=== PATIENT | female | born 1970 | race Caucasian/White ===

== ENCOUNTER 2019-08-19 16:51 | Inpatient (IN) ==
[2019-08-19 18:18] LABS: URINE SOURCE CATH
[2019-08-19 18:23] LABS: BILIRUBIN URINE NEGATIVE (NEGATIVE); BLOOD URINE NEGATIVE (NEGATIVE); COLOR YELLOW; GLUCOSE URINE NEGATIVE (NEGATIVE); KETONE URINE NEGATIVE (NEGATIVE); LEUKOCYTES URINE LARGE (NEGATIVE); NITRITE URINE POSITIVE (NEGATIVE); PH URINE 6.5; PROTEIN URINE TRACE mg/dL (NEGATIVE); SP GRAVITY URINE 1.017; TURBIDITY URINE HAZY (CLEAR); UROBILINOGEN URINE NORMAL (NORMAL)
[2019-08-19 18:25] LABS: UR EPITHELIAL CELLS <10 /HPF (<10); URINE BACTERIA 4+ /HPF; URINE RBC <10 /HPF (<10); URINE WBC TNTC /HPF (<10)
--- NOTE | 2019-08-19 19:09 | PROVIDER DOCUMENTATION ---
This chart was entered by Sonali Meléndez Scribe, acting as scribe for Clarence Fine DO. HPI-General Adult - General Source: EMS Unable to obtain history due to:: altered - History of Present Illness -Gen Adult Nature of Presenting Problems: pt is a 49 yr old female presenting via EMS after brother found her home, in bed, pt had been incontinent of bowel and bladder and was lying in her excrement. pt moaning, states "i hurt" but will not say more, will not answer any questions. pt complains of pain everywhere she is touched. unknown last normal Onset/Duration: reports: unsure Timing: reports: still present <Clarence Fine - Last Filed: 08/19/19 19:07> <Tai Dukes - Last Filed: 08/19/19 22:29> - General Chief Complaint: Altered Mental Status Stated Complaint: psych Time Seen by Provider: 08/19/19 17:45 Allergies/Adverse Reactions: Patient Allergies Allergy/AdvReac Type Severity Reaction Status Date / Time No Known Allergies Allergy Verified 01/27/19 10:56 Home Medications: Home Medication List Medication Instructions Recorded Confirmed Last Taken Type Duloxetine [Cymbalta] 60 mg PO HS 11/11/16 09/27/17 01/11/17 19:00 History Doxycycline 100 mg PO BID #14 tab 09/27/17 Unknown Rx Fluconazole [Diflucan] 150 mg PO DAILY #5 tab 09/27/17 Unknown Rx Sulfamethoxazole/Trimethoprim 1 ea PO BID #10 tab 09/27/17 Unknown Rx [Bactrim Ds Tablet] Cyclobenzaprine [Flexeril] 10 mg PO TID #15 tab 10/01/17 Unknown Rx Methylprednisolone [Medrol Dosepak] 4 mg PO DIRECTED #1 pkg 10/01/17 Unknown Rx Cyclobenzaprine [Flexeril] 10 mg PO BID PRN PRN #20 tab 09/28/18 Unknown Rx Review of Systems - Adult - REVIEW OF SYSTEMS - ADULT ROS:: unobtainable per condition Constitutional: reports: no symptoms reported Eyes: reports: no symptoms reported Ears, Nose, Mouth & Throat: reports: no symptoms reported Cardiovascular: reports: no symptoms reported Respiratory: reports: no symptoms reported Gastrointestinal: reports: no symptoms reported Genitourinary: reports: no symptoms reported Musculoskeletal: reports: no symptoms reported Integumentary: reports: no symptoms reported Neurological: reports: no symptoms reported Psychiatric: reports: no symptoms reported Endocrine: reports: no symptoms reported Hematologic/Lymphatic: reports: no symptoms reported Allergic/Immunologic: reports: no symptoms reported All Other Systems: Reviewed and Negative <Clarence Fine - Last Filed: 08/19/19 19:07> Past History - Adult - PAST MEDICAL HISTORY-ADULT Review of Records: reports: Old Records Reviewed, Nursing Assessment Review, Medications Reviewed, Social history reviewed & non-contributory. Major Childhood Illnesses: reports: denies history Cardiovascular: reports: denies history Respiratory: reports: denies history Gastrointestinal: reports: GERD Obstetrical/Gynecological: reports: denies history Genitourinary: reports: denies history Musculoskeletal: reports: denies history Neurological: reports: denies history Psychiatric: reports: depression Endocrine/Immune: reports: denies history Other Conditions: reports: other (pna) - PRIOR SURGERIES/PROCEDURES Surgical/Procedure History: reports: appendectomy, hysterectomy, breast (reduction), back/neck, other (breast re) - PRIOR HOSPITALIZATIONS Prior Hospitalizations: reports: none - IMMUNIZATION STATUS Childhood Immunizations: See Nurse Assessment Flu Vaccine: See Nurse Assessment - FAMILY HISTORY Family History: reviewed, not pertinent - SOCIAL HISTORY Smoking: cigarettes Living Situation: alone <Clarence Fine - Last Filed: 08/19/19 19:07> Physical Exam-General - PHYSICAL EXAM-ADULT Initial Vital Signs Reviewed: Yes - CONSTITUTIONAL General Appearance: alert, other (moaning, not answering questions) - EYES Eyes: PERRL/EOMI (5mm bilaterally) - HEAD, EARS, NOSE, MOUTH & THROAT HENMT: normocephalic/atraumatic, moist mucous membranes, normal ENT inspection - NECK Neck: full range of motion, supple, normal inspection - RESPIRATORY Respiratory: lungs clear, normal breath sounds - CARDIOVASCULAR Cardiovascular: normal peripheral pulses, regular rate, rhythm - GASTROINTESTINAL (ABDOMEN) Abdominal Exam: normal bowel sounds, soft, tenderness (gen tenderness/pain response with any touch) - LYMPHATIC Lymphatic: no adenopathy - MUSCULOSKELETAL Extremity: normal range of motion, tenderness (gen tenderness/pain response with any touch) - SKIN Integumentary: normal color, normal turgor, warm/dry - PSYCHIATRIC Psych/Mental Status: other (moaning, will not answer questions) <Clarence Fine - Last Filed: 08/19/19 19:07> Progress - PLAN OF CARE/RESULTS Progress/Plan/Lab Results: Vital Signs - 8 hr 08/19/19 17:37 08/19/19 17:45 08/19/19 17:53 Temperature 98.0 F Pulse Rate 64 66 Respiratory Rate 16 18 Blood Pressure 140/72 140/72 O2 Sat by Pulse Oximetry 98 95 97 08/19/19 18:00 Temperature Pulse Rate Respiratory Rate Blood Pressure O2 Sat by Pulse Oximetry 96 Laboratory Results - last 24 hr 08/19/19 08/19/19 17:45 18:02 POC Glucose 88 Urine Source CATH Urine Color YELLOW Urine Turbidity HAZY Urine pH 6.5 Ur Specific [place] 1.017 Urine Protein TRACE A Ur Glucose (Stick) NEGATIVE Ur Ketones (Stick) NEGATIVE Urine Blood NEGATIVE Urine Nitrite POSITIVE A Urine Bilirubin NEGATIVE Urobilinogen Dipstick NORMAL Urine Leukocytes LARGE A Urine WBC (Auto) TNTC A Urine RBC (Auto) <10 U Epithel Cells (Auto) <10 Urine Bacteria (Auto) 4+ Orders Category Date Time Status CT HEAD W/O CONTRAST [CT] Stat Exams 08/19/19 18:34 Ordered ALCOHOL BLOOD Stat Lab 08/19/19 18:08 Uncollected CBC WITH ELECTRONIC DIFF [HEME] Stat Lab 08/19/19 18:07 Uncollected CBC WITH ELECTRONIC DIFF [HEME] Stat Lab 08/19/19 18:35 Uncollected CK PROFILE [SP CHEM] Stat Lab 08/19/19 18:07 Ordered COMPREHENSIVE METABOLIC PANEL [CHEM] Stat Lab 08/19/19 18:07 Ordered COMPREHENSIVE METABOLIC PANEL [CHEM] Stat Lab 08/19/19 18:35 Ordered UA NIMS W/REFLEX CULT [URINALYSIS] Stat Lab 08/19/19 17:45 Completed URINE DRUG SCREEN Stat Lab 08/19/19 18:37 Uncollected - EKG 1 Time of EKG reading by physician:: 18:09 EKG Read and Signed by:: Clarence Fine EKG Interpretation (*Must complete 3 of following elements*): Abnormal (non specific ST and T wave abnormality) Rate: 66 Rhythm: NSR with SA [place]: normal QRS: normal - CHANGE OF SHIFT REPORT (ED Provider) 1 Report Given and Care Transferred to:: Dr Dukes Time of Transfer: 19:08 Items Pending: Labs, CT/MRI Results <Clarence Fine - Last Filed: 08/19/19 19:07> - PLAN OF CARE/RESULTS Progress/Plan/Lab Results: Vital Signs - 8 hr 08/19/19 17:37 08/19/19 17:45 08/19/19 17:53 Temperature 98.0 F Pulse Rate 64 66 Respiratory Rate 16 18 Blood Pressure 140/72 140/72 O2 Sat by Pulse Oximetry 98 95 97 08/19/19 18:00 08/19/19 19:22 08/19/19 19:32 Temperature Pulse Rate Respiratory Rate Blood Pressure 161/101 176/116 O2 Sat by Pulse Oximetry 96 94 L 93 L Laboratory Results - last 24 hr 08/19/19 08/19/19 08/19/19 17:45 17:45 18:02 WBC RBC Hgb Hct MCV MCH MCHC RDW Std Deviation Plt Count MPV Immature Gran % (Auto) Neut % (Auto) Lymph % (Auto) Coleman % (Auto) Eos % (Auto) Baso % (Auto) Immature Gran # (Auto) Neut # (Auto) Lymph # (Auto) Coleman # (Auto) Eos # (Auto) Baso # (Auto) Sodium Potassium Chloride Carbon Dioxide Anion Gap BUN Creatinine Estimated GFR/1.73 m2 BUN/Creatinine Ratio Glucose POC Glucose 88 Calculated Osmolality Calcium Total Bilirubin AST ALT Alkaline Phosphatase Creatine Kinase Troponin T High Sens Total Protein Albumin Globulin Albumin/Globulin Ratio Urine Source CATH Urine Color YELLOW Urine Turbidity HAZY Urine pH 6.5 Ur Specific [place] 1.017 Urine Protein TRACE A Ur Glucose (Stick) NEGATIVE Ur Ketones (Stick) NEGATIVE Urine Blood NEGATIVE Urine Nitrite POSITIVE A Urine Bilirubin NEGATIVE Urobilinogen Dipstick NORMAL Urine Leukocytes LARGE A Urine WBC (Auto) TNTC A Urine RBC (Auto) <10 U Epithel Cells (Auto) <10 Urine Bacteria (Auto) 4+ Urine Opiates Screen NONE DETECTED Ur Oxycodone Screen NONE DETECTED Ur Methadone, Qual NONE DETECTED Ur Barbiturates Screen NONE DETECTED Ur Phencyclidine Scrn NONE DETECTED Ur Amphetamines Screen NONE DETECTED U Benzodiazepines Scrn NONE DETECTED Urine Cocaine Screen PRESUMPTIVE POSITIVE A U Cannabinoids Screen NONE DETECTED Plasma/Serum Ethyl Alc 08/19/19 08/19/19 08/19/19 19:00 19:00 19:00 WBC 9.64 RBC 4.69 Hgb 13.8 Hct 41.6 MCV 88.7 MCH 29.4 MCHC 33.2 RDW Std Deviation 14.5 Plt Count 224 MPV 11.3 H Immature Gran % (Auto) 0.2 Neut % (Auto) 64.3 Lymph % (Auto) 30.1 Coleman % (Auto) 4.0 Eos % (Auto) 0.9 Baso % (Auto) 0.5 Immature Gran # (Auto) 0.02 Neut # (Auto) 6.19 Lymph # (Auto) 2.90 Coleman # (Auto) 0.39 Eos # (Auto) 0.09 Baso # (Auto) 0.05 Sodium 137 Potassium 4.1 Chloride 104 Carbon Dioxide 20 L Anion Gap 13 BUN 16 Creatinine 0.7 Estimated GFR/1.73 m2 > 60 BUN/Creatinine Ratio 23 Glucose 107 H POC Glucose Calculated Osmolality 275 Calcium 9.2 Total Bilirubin 0.27 AST 13 ALT 6 L Alkaline Phosphatase 111 H Creatine Kinase 45 Troponin T High Sens Total Protein 8.3 Albumin 3.8 Globulin 4.5 Albumin/Globulin Ratio 0.8 Urine Source Urine Color Urine Turbidity Urine pH Ur Specific [place] Urine Protein Ur Glucose (Stick) Ur Ketones (Stick) Urine Blood Urine Nitrite Urine Bilirubin Urobilinogen Dipstick Urine Leukocytes Urine WBC (Auto) Urine RBC (Auto) U Epithel Cells (Auto) Urine Bacteria (Auto) Urine Opiates Screen Ur Oxycodone Screen Ur Methadone, Qual Ur Barbiturates Screen Ur Phencyclidine Scrn Ur Amphetamines Screen U Benzodiazepines Scrn Urine Cocaine Screen U Cannabinoids Screen Plasma/Serum Ethyl Alc 08/19/19 19:00 WBC RBC Hgb Hct MCV MCH MCHC RDW Std Deviation Plt Count MPV Immature Gran % (Auto) Neut % (Auto) Lymph % (Auto) Coleman % (Auto) Eos % (Auto) Baso % (Auto) Immature Gran # (Auto) Neut # (Auto) Lymph # (Auto) Coleman # (Auto) Eos # (Auto) Baso # (Auto) Sodium Potassium Chloride Carbon Dioxide Anion Gap BUN Creatinine Estimated GFR/1.73 m2 BUN/Creatinine Ratio Glucose POC Glucose Calculated Osmolality Calcium Total Bilirubin AST ALT Alkaline Phosphatase Creatine Kinase Troponin T High Sens < 6 Total Protein Albumin Globulin Albumin/Globulin Ratio Urine Source Urine Color Urine Turbidity Urine pH Ur Specific [place] Urine Protein Ur Glucose (Stick) Ur Ketones (Stick) Urine Blood Urine Nitrite Urine Bilirubin Urobilinogen Dipstick Urine Leukocytes Urine WBC (Auto) Urine RBC (Auto) U Epithel Cells (Auto) Urine Bacteria (Auto) Urine Opiates Screen Ur Oxycodone Screen Ur Methadone, Qual Ur Barbiturates Screen Ur Phencyclidine Scrn Ur Amphetamines Screen U Benzodiazepines Scrn Urine Cocaine Screen U Cannabinoids Screen Plasma/Serum Ethyl Alc Orders Category Date Time Status CT HEAD W/O CONTRAST [CT] Stat Exams 08/19/19 18:34 Completed cxr [CHEST-1 VIEW] [RAD] Stat Exams 08/19/19 20:57 Completed ALCOHOL BLOOD Stat Lab 08/19/19 19:00 Completed CBC WITH ELECTRONIC DIFF [HEME] Stat Lab 08/19/19 19:00 Completed CK PROFILE [SP CHEM] Stat Lab 08/19/19 19:00 Completed COMPREHENSIVE METABOLIC PANEL [CHEM] Stat Lab 08/19/19 19:00 Completed TROPONIN T HIGH SENSITIVITY Stat Lab 08/19/19 19:00 Completed UA NIMS W/REFLEX CULT [URINALYSIS] Stat Lab 08/19/19 17:45 Completed URINE CULTURE [RM] Routine Lab 08/19/19 17:45 Received URINE DRUG SCREEN Stat Lab 08/19/19 17:45 Completed CefTRIAXONE [Rocephin] 1 gm Med 08/19/19 20:38 Discontinued 0.9% Sodium Chloride Inj [Ns] 50 ml IV NOW Lorazepam [Ativan] Med 08/19/19 19:24 Discontinued 1 mg IV NOW ONE Water, Sterile Inj [Sterile Water Inj.] Med 08/19/19 20:02 Discontinued 1.2 ml INJ NOW ONE Ziprasidone [Geodon] Med 08/19/19 20:02 Discontinued 20 mg IM NOW ONE EKG [EKG] Stat Ther 08/19/19 20:56 Ordered Result Diagrams: 08/19/19 19:00 08/19/19 19:00 - CONSULTS/PCP/HOSPITALIST Notification #1 *Consult/PCP/Hospitalist*: Dr Real Time Discussed: 22:28 Consult Disposition: Will see in ED, Admit <Tai Dukes - Last Filed: 08/19/19 22:29> Departure <Clarence Fine - Last Filed: 08/19/19 19:07> - Departure Date of Disposition Decision: 08/19/19 Time of Disposition Decision: 22:28 Certified Medical Emergency: Emergent - Critical Care Note This patient required my direct & personal management of CC.: No <Tai Dukes - Last Filed: 08/19/19 22:29> - Departure DIAGNOSIS: Altered mental status, Substance abuse, UTI (urinary tract infection) Disposition: ADMITTED INPATIENT 09 Condition: Fair Referrals and Follow-Ups: Franco Tolentino MD [Primary Care Provider] - Attestation - Physician/ BIN Attestation Patient care was provided by Advanced Practice Provider:: No The physician spent face to face time with patient:: Yes Advanced Practice Provider documentation review:: Supervising physician onsite and consulted in the evaluation and care of this patient. The physician did have a face to face encounter with the patient. <Tai Dukes - Last Filed: 08/19/19 22:29> This chart was documented by the indicated scribe, (Sonali Meléndez, Melvina) and accurately reflects the services I performed and decisions made by , Clarence Fine DO, as attested by the provider's signature.
[2019-08-19 19:11] LABS: BASO# 0.05 X1000 (0.0-0.2); BASO% 0.5 % (0.0-0.8); EOS# 0.09 X1000 (0.0-0.7); EOS% 0.9 % (0.0-10.0); HEMATOCRIT 41.6 % (37.0-47.0); HEMOGLOBIN 13.8 g/dL (12.0-16.0); IMM GRAN# 0.02 X1000 (0.0-0.04); IMM GRAN% 0.2 % (0.0-0.5); LYMPH% 30.1 % (20.5-51.1); MCH 29.4 PG (27-31); MCHC 33.2 g/dL (33-37); MCV 88.7 FL (81-99); MONO# 0.39 X1000 (0.11-0.59); MPV 11.3 FL (7.4-10.4); NEUT# 6.19 X1000 (1.4-6.5); NEUT% 64.3 % (42.2-75.2); PLT 224 X1000 (130-400); RBC 4.69 XMIL (4.2-5.4); RDW 14.5 % (11.5-14.5); WBC 9.64 X1000 (4.8-10.8)
[2019-08-19] MEDS ORDERED: ATIVAN IV ONE (19:24)
[2019-08-19 19:31] LABS: UR AMPHETAMINES QUAL NONE DETECTED (NONE DETECT); UR BARBITUATES QUAL NONE DETECTED (NONE DETECT); UR BENZODIAZEPIN QUAL NONE DETECTED (NONE DETECT); UR CANNABINOIDS QUAL NONE DETECTED (NONE DETECT); UR COCAINE QUAL PRESUMPTIVE POSITIVE (NONE DETECT); UR METHADONE QUAL NONE DETECTED (NONE DETECT); UR OPIATES QUAL NONE DETECTED (NONE DETECT); UR OXYCODONE QUAL NONE DETECTED (NONE DETECT); UR PCP QUAL NONE DETECTED (NONE DETECT)
[2019-08-19 19:41] LABS: AGAP 13; ALB/GLOB RATIO 0.8; ALBUMIN 3.8 g/dL (3.5-5.0); ALKALINE PHOSPHATASE 111 U/L (32-104); BUN 16 mg/dL (8-22); CALCIUM 9.2 mg/dL (8.8-10.2); CHLORIDE 104 mmol/L (98-107); CK PROFILE 45 U/L (24-173); COSMO 275; CREATININE 0.7 mg/dL (0.5-0.9); ESTIMATED GFR > 60; GLUCOSE 107 mg/dL (70-104); GOT 13 U/L (10-30); GPT 6 U/L (10-36); POTASSIUM 4.1 mmol/L (3.5-5.1); SODIUM 137 mmol/L (136-145); TCO2 20 mmol/L (25-35); TOTAL BILIRUBIN 0.27 mg/dL (0.20-1.00); TOTAL PROTEIN 8.3 g/dL (6.3-8.3)
[2019-08-19] MEDS ORDERED: GEODON IM ONE (20:02)
[2019-08-19] MEDS ORDERED: STERILE WATER INJ. INJ ONE (20:02)
[2019-08-19] MEDS ORDERED: ROCEPHIN 1 GM in NS 50 ML IV ONE (20:38)
--- NOTE | 2019-08-19 21:01 | Diag Imaging Result Doc PS360 ---
EXAM: CT HEAD W/O CONTRAST 08/19/2019 HISTORY: altered mental status TECHNIQUE: This exam was performed using automated exposure control, adjustment of mA or kV according to patient size, and/or use of iterative reconstruction technique. COMMENT: There are numerous lacunar lucencies in the anterior basal ganglia on the right and to a lesser extent in the left basal ganglia and external capsule. There is no evidence of bleed or abnormal extra-axial fluid collection. Compared to 01/27/2019 there has been no significant change in the appearance the brain. There is an air-fluid level in the right sphenoid sinus. The calvarium is intact. There is persistence of the metopic suture. IMPRESSION: Chronic microvascular ischemic changes. No evidence of acute intracranial disease. Electronically signed by Eleazar Morrissey 08/19/2019 8:58 PM
--- NOTE | 2019-08-19 21:22 | Diag Imaging Result Doc PS360 ---
EXAM: CHEST-1 VIEW 08/19/2019 HISTORY: ams TECHNIQUE: AP portable at 2113 COMMENT: There is ill-defined opacity in both lung bases which was not clearly present on 01/10/2017. The heart size is not enlarged. The pulmonary vascularity is somewhat prominent. IMPRESSION: Mild pulmonary edema. Electronically signed by Eleazar Morrissey 08/19/2019 9:20 PM
[2019-08-19] MEDS ORDERED: ZOFRAN IV PRN (23:18)
--- NOTE | 2019-08-19 23:47 | EKG Report ---
Test Performed on : 08/19/2019 6:09:59 PM Test Reason : ams Blood Pressure : / mmHG Vent. Rate : 066 BPM Atrial Rate : 066 BPM P-R Int : 166 ms QRS Dur : 070 ms QT Int : 436 ms P-R-T Axes : 070 058 063 degrees QTc Int : 457 ms Normal sinus rhythm. with sinus arrhythmia. Nonspecific ST and T wave abnormality Abnormal ECG When compared with ECG of 27-JAN-2019 11:04, Inverted T waves have replaced nonspecific T wave abnormality in Anterior leads Nonspecific T wave abnormality no longer evident in Lateral leads Unconfirmed Result
--- NOTE | 2019-08-20 00:56 | HISTORY AND PHYSICAL ---
PRIMARY CARE PROVIDER: Unknown. CHIEF COMPLAINT: Per ED records, altered. HISTORY OF PRESENT ILLNESS: Ms Mcmahon is a 49-year-old female who was brought in by EMS after her brother found her at home in bed who had been incontinent of her bowel and bladder and was lying in her excrement moaning and saying "I hurt," but would not say any more and would not answer any other questions. It is unknown when she was last seen normal. Nursing staff reported that around 21:50 a female called who stated she was the patient's friend's stating that her had found her earlier and called 911 and that they had found her antidepressant bottle with all her medication gone from it that she had just gotten filled 1 week ago. They were not able to identify what the medication was. When patient first arrived she was screaming. I believe she was given some Geodon and some Ativan to get a head CT that does not show anything acute. Laboratory data was essentially unremarkable except for a urinary tract infection and positive for cocaine on her drug screen. Her chest x-ray does show some mild pulmonary edema. The patient does open her eyes to her name. However, she does not answer any questions or follow commands. She has had both arms up by her hand with her fists tightly closed. I was able to get her to move her arms down and she released her tight prenatal teacher on her fists. However, she did not squeeze my hands or do anything that I asked. PAST MEDICAL HISTORY: Per looking through EMR, major depressive disorder, alcohol use, she had been in remission in 2016 but she had a relapse, unknown if she has been alcohol-free since. She has had a prior overdose attempt, benzodiazepine use disorder, GERD. SURGICAL HISTORY: Hysterectomy and breast reduction, appendectomy, and a laparoscopic with S O with Dr. Lorenzo. REVIEW OF SYSTEMS: Hard to obtain secondary to the patient's condition except for those mentioned in HPI. HOME MEDICATIONS: Unknown. ALLERGIES: No known allergies. SOCIAL HISTORY: Unknown. FAMILY HISTORY: Unknown. PHYSICAL EXAMINATION: VITAL SIGNS: Temperature was 98 degrees, heart rate 66, respirations 18, blood pressure 176/116, O2 of 93% on room air. GENERAL: Ms. Mcmahon is a 49-year-old female who is lying on the stretcher. She has her arms up folded by her head with tight fists, sleeping. However, she did awaken easily to her name. She is lying there in no acute distress. HEENT: Atraumatic, normocephalic. PERRL. NECK: Supple. Trachea midline. CARDIOVASCULAR: S1, S2 appreciated. No murmurs, gallops, rubs noted. RESPIRATORY: Lung sounds clear bilaterally. GASTROINTESTINAL: Appeared to be soft, nontender, nondistended. Positive bowel sounds 4 quadrants. EXTREMITIES: Lower extremities were negative for edema. Bilateral pedal pulses were bounding. NEUROLOGIC: The patient does not really respond to any questioning. She just looks at me. She did not follow any commands. DIAGNOSTIC DATA: Head CT, chronic microvascular ischemic changes. No evidence of acute intracranial disease. Chest x-ray, mild pulmonary edema. LABORATORY DATA: White count 9, hemoglobin and hematocrit 13 and 41, platelet count is 224,000. Sodium 137, potassium 4.1, BUN 16, creatinine 0.7, blood glucose is 107, ALT is 6, alkaline phosphatase 111. Urinalysis, 4+ bacteria, large leukocytes, positive for nitrites. Toxicology screen is positive for cocaine. Alcohol level, none. ASSESSMENT AND PLAN: 1. Altered mental status.multifactorial. Could be secondary to infectious process with UTI versus overdose or cocaine use. She did have a concerned friend call in about the patient stating that she had took a whole bottle of her antidepressants that were filled last week. However, her toxicology screen is only positive for cocaine. Head CT is currently negative. We will monitor in ICU for close monitoring. Continue with neuro checks. She is currently calm. However, she was having to get Geodon and Ativan for her head CT neck. They kept reporting that she was screaming out she was hurting, but would not tell them where. 2. Hypertension. We will do p.r.n. Apresoline for systolic blood pressures greater than 160. 3. Mild pulmonary edema seen on chest x-ray. Did not see any history of congestive heart failure. Unknown what her home medications are at this time. She does not appear to be fluid volume overloaded. We will go ahead and check a proBNP. 4. Depression. 5. Suicide attempt in the past. I believe in 2016. 6. Alcohol use disorder and benzodiazepine use disorder. We will consult Plastic Surgery Nurse for possible [facility] consult. 7. Further recommendation to follow physician evaluation, laboratory and diagnostic data. Dictated by SEBASTIEN Doss for Douglas Saldivar MD cc: Douglas Saldivar MD [facility]
[2019-08-20 01:04] LABS: ACETAMINOPHEN < 1.2 ug/mL (10-30); SALICYLATES < 3.00 mg/dL (3-10)
[2019-08-20] MEDS: NS 1,000 ML IV SCH ×2 (02:15→20:46)
[2019-08-20] MEDS: APRESOLINE IV PRN ×2 (04:44→16:53)
--- NOTE | 2019-08-20 06:34 | Diag Imaging Result Doc PS360 ---
CHEST-PORTABLE - 08/20/2019 INDICATION: follow up Poss OD, cough COMPARISON: 08/19/2019 FINDINGS: The lungs are normally expanded and clear. Heart size and mediastinal contours are normal. No pneumothorax or pleural effusion. IMPRESSION: Negative exam. Electronically signed by Mic Honeycutt 08/20/2019 6:32 AM
[2019-08-20] MEDS ORDERED: PYRIDIUM PO ONE (06:45)
[2019-08-20 07:48] LABS: BASO# 0.02 X1000 (0.0-0.2); BASO% 0.2 % (0.0-0.8); EOS# 0.13 X1000 (0.0-0.7); EOS% 1.5 % (0.0-10.0); HEMATOCRIT 40.2 % (37.0-47.0); HEMOGLOBIN 13.1 g/dL (12.0-16.0); IMM GRAN# 0.03 X1000 (0.0-0.04); IMM GRAN% 0.3 % (0.0-0.5); LYMPH# 2.49 X1000 (1.2-3.4); LYMPH% 28.8 % (20.5-51.1); MCH 29.2 PG (27-31); MCHC 32.6 g/dL (33-37); MCV 89.5 FL (81-99); MONO% 5.8 % (1.7-9.3); NEUT# 5.49 X1000 (1.4-6.5); NEUT% 63.4 % (42.2-75.2); PLT 225 X1000 (130-400); RBC 4.49 XMIL (4.2-5.4); RDW 14.7 % (11.5-14.5); WBC 8.66 X1000 (4.8-10.8)
[2019-08-20 08:15] LABS: UR AMPHETAMINES QUAL NONE DETECTED (NONE DETECT); UR BARBITUATES QUAL NONE DETECTED (NONE DETECT); UR BENZODIAZEPIN QUAL NONE DETECTED (NONE DETECT); UR CANNABINOIDS QUAL NONE DETECTED (NONE DETECT); UR COCAINE QUAL PRESUMPTIVE POSITIVE (NONE DETECT); UR METHADONE QUAL NONE DETECTED (NONE DETECT); UR OPIATES QUAL NONE DETECTED (NONE DETECT); UR OXYCODONE QUAL NONE DETECTED (NONE DETECT); UR PCP QUAL NONE DETECTED (NONE DETECT)
[2019-08-20 08:29] LABS: AGAP 14; ALB/GLOB RATIO 0.8; ALBUMIN 3.6 g/dL (3.5-5.0); ALKALINE PHOSPHATASE 104 U/L (32-104); BUN 15 mg/dL (8-22); CALCIUM 8.9 mg/dL (8.8-10.2); CHLORIDE 106 mmol/L (98-107); COSMO 279; CREATININE 0.7 mg/dL (0.5-0.9); GLUCOSE 84 mg/dL (70-104); GOT 16 U/L (10-30); GPT 7 U/L (10-36); POTASSIUM 3.6 mmol/L (3.5-5.1); SODIUM 140 mmol/L (136-145); TCO2 20 mmol/L (25-35); TOTAL BILIRUBIN 0.27 mg/dL (0.20-1.00); TOTAL PROTEIN 8.2 g/dL (6.3-8.3)
[2019-08-20 08:50] LABS: ACETAMINOPHEN < 1.2 ug/mL (10-30); SALICYLATES < 3.00 mg/dL (3-10)
--- NOTE | 2019-08-20 09:12 | PROGRESS NOTE ---
DATE: 08/20/2019 SUBJECTIVE: Patient is resting comfortably in bed. She is not oriented, only to person. She is not answering any of my questions. She is following commands on and off. We are not sure if this patient took all of the bottles of antidepressant medications that were filled last week. Urine toxicology showed cocaine. She has a UTI so this global encephalopathy can be multifactorial. No family members at the bedside. OBJECTIVE: Vital Signs: Temperature 97.4 degrees, pulse 94, respiratory rate 21, and blood pressure 164/119. Oxygen saturation 100% on room air. HEENT: Head normocephalic. No trauma. PERRLA. Neck: Supple. No JVD. No masses. Central trachea. Cardiovascular: RRR. Abdomen: Soft, nontender, and nondistended. Abdomen is soft, but she is having tenderness mostly at the level of the lower abdomen but is diffused. She is not answering my questions when I ask her where is the pain at. Extremities: No edema. No clubbing. No cyanosis. Neurological: This patient is basically not responding to any of my questions except her name, and this has been on and off. LABORATORY AND DIAGNOSTIC: CT of the head has been negative for acute intracranial process. I will get a CT scan of the abdomen to rule out any infectious process. Her urine showed white blood cell count, bacteria and nitrates. She has been started on ceftriaxone, but I will switch it to Zosyn for now. Urine culture has been requested. I will request also a blood culture. ASSESSMENT AND PLAN: 1. Global encephalopathy, multifactorial, probably related to an infectious process, but also we have a positive urine toxicology that showed cocaine. On top of that, probably this patient took a bottle of antidepressants that were filled last week. We will continue monitoring this patient in the ICU. She is complaining of abdominal pain, and I will get a CT scan of the abdomen. 2. Abdominal pain, pending CT scan of the abdomen to rule out any acute process. 3. Hypertension. Continue with as needed medications. 4. Depression aware, but no family members at the bedside. 5. Previous suicide attempt. I Am not sure about this, and she is not answering any of my questions except that she is oriented to name. I will continue to monitor. 6. Alcohol use disorder and benzodiazepine use disorder. Once everything is resolved, hopefully, we will think about transferring this patient to [facility] if she has any kind of problems related to a suicide attempt. 7. Urinary tract infection. I have placed this patient on antibiotics Zosyn. I have requested blood culture, and also she already had a urine culture done. Pending results. cc: Bolivar Palacios MD
[2019-08-20] MEDS: ZOSYN 3.375 GM in NS 50 ML IV SCH ×3 (10:08→20:46)
[2019-08-20] MEDS ORDERED: VANCOMYCIN IV PER PHARMACY MISC SCH (10:30)
--- NOTE | 2019-08-20 10:55 | Diag Imaging Result Doc PS360 ---
CT ABD/PELVIS W/IV CONT ONLY - 08/20/2019 INDICATION: Abdominal pain COMPARISON: None FINDINGS: The lung bases are clear and the heart size is normal. The liver, gallbladder, spleen, pancreas, adrenals, and kidneys are normal. There is some vascular disease and mild dilation of the infrarenal abdominal aorta. Maximum diameter is about 2.6 cm. There is moderate to severe rectal stool impaction. Otherwise, no bowel obstruction or inflammation. There is probably been previous appendectomy. Uterus is absent. Urinary bladder is normal. There is vertebroplasty cement in L2. No acute bony lesions. IMPRESSION: 1. Severe rectal stool impaction. 2. Vascular disease of the abdominal aorta. This exam was performed using automated exposure control, adjustment of mA or kV according to patient size, and/or use of iterative reconstruction technique Electronically signed by Mic Honeycutt 08/20/2019 10:53 AM
--- NOTE | 2019-08-20 12:52 | NEUROLOGY CONSULTATION ---
DATE: 08/20/2019 LOCATION: ICU bed 18. HISTORY OF PRESENT ILLNESS: Ms. Mcmahon is 49 years old and she was reportedly found down at home with evidence of bowel and bladder contents near her. By report, she was moaning and saying, "I hurt," but not responding verbally beyond that. I do not have any first-hand history. History is taken from review of the admission note. Workup includes noncontrast CT of the head done almost 20 hours ago, showing multiple small subcortical white matter lucencies bilaterally, a little bit more prominent on the right than the left, mostly basal ganglia region bilaterally. I do not see significant evidence of cortical atrophy. There is no evidence of bleeding. Findings are not significantly changed compared to scan done 7 months ago. Lab shows borderline elevated proBNP, mildly elevated alkaline phosphatase, which corrected, otherwise normal liver enzymes. There is evidence of urine infection. Drug screen was positive only for cocaine. Serum ethanol level was none detected. She has been afebrile. Blood pressures have ranged 90s to 170s since admission, 130s to 170s in the last 12 hours. Heart rate has been 60s to 80s until once recorded 94 this morning. On exam, Ms. Mcmahon is supine, awake, alert, active, moving all limbs spontaneously. She has been reported to speak her name correctly when asked earlier, but she did not reply when I asked her to tell me her name. She nodded her head appropriately affirmatively to a few questions. She followed a few simple commands, including holding up two fingers. She was not attentive to visual field testing. She did blink with visual threat approaching from the left and from the right. Limb tone is symmetric. She was not attentive to commands for examining individual muscles. Plantar response is silent bilaterally. There is slight tremulousness, but nothing prominent, and no classifiable tremor or other definite abnormal movement apparent. She has full spontaneous voluntary conjugate lateral eye movement. Facial motility is symmetric. Tongue is midline. Head and neck are unremarkable. There is no meningismus. IMPRESSION: Global encephalopathy, uncertain etiology. There may be multiple factors. I do not see anything in the chemistry profile likely sufficient to produce encephalopathy. I suspect this is related to substance ingestion, possibly antidepressant medication as was noted to be a concern based on history recorded earlier. There is evidence of basal ganglia lucency bilaterally, most likely due to previous subcortical small cerebral infarctions bilaterally. Prior brain injury from bleeding or from carbon monoxide are not excluded. Brain infarction could be related to her apparent cocaine use, but findings do not indicate a recent infarction. The elevated blood pressure may also be related to cocaine. I do not know her baseline blood pressure or other medical status. I do not have any urgent suggestion. I expect she will slowly improve. Depending on her baseline, she might need some attention to cognitive testing, and certainly counseling regarding substance use. Thank you for asking Neurology to see Ms. Mcmahon. cc: MD MANDIE Chaidez III
[2019-08-20] MEDS ORDERED: VANCOMYCIN 1,800 MG in NS 250 ML IV ONE (15:00)
[2019-08-20] MEDS ORDERED: FLEET ENEMA PR ONE (16:16)
[2019-08-20] MEDS ORDERED: CALMOSEPTINE OINTMENT TOP PRN (16:54)
[2019-08-20] MEDS: TORADOL IV PRN (17:59)
[2019-08-20] MEDS ORDERED: NS 0 ML ONE ×2 (19:19→20:23)
[2019-08-20] MEDS ORDERED: ROCEPHIN 1 GM in NS 50 ML IV SCH (20:00)
[2019-08-20] MEDS ORDERED: DULCOLAX PR SCH (21:00)
[2019-08-21] MEDS: ZOSYN 3.375 GM in NS 50 ML IV SCH ×4 (01:42→20:58)
[2019-08-21] MEDS: TORADOL IV PRN ×2 (02:41→09:29)
[2019-08-21] MEDS: APRESOLINE IV PRN (03:15)
[2019-08-21 05:54] LABS: AGAP 15; ALB/GLOB RATIO 0.9; ALBUMIN 3.8 g/dL (3.5-5.0); ALKALINE PHOSPHATASE 98 U/L (32-104); BUN 16 mg/dL (8-22); CALCIUM 8.8 mg/dL (8.8-10.2); CHLORIDE 106 mmol/L (98-107); COSMO 279; CREATININE 0.8 mg/dL (0.5-0.9); ESTIMATED GFR > 60; GLUCOSE 108 mg/dL (70-104); GOT 16 U/L (10-30); GPT 8 U/L (10-36); POTASSIUM 3.4 mmol/L (3.5-5.1); SODIUM 139 mmol/L (136-145); TCO2 18 mmol/L (25-35); TOTAL BILIRUBIN 0.56 mg/dL (0.20-1.00); TOTAL PROTEIN 7.9 g/dL (6.3-8.3)
[2019-08-21] MEDS ORDERED: KLOR-CON PO ONE (06:25)
--- NOTE | 2019-08-21 07:50 | PROGRESS NOTE ---
DATE: 08/21/2019 SUBJECTIVE: The patient is resting comfortably in bed. She is complaining of lower extremity pain. It looks like a neuropathic type of pain. She has been on pregabalin and duloxetine at home. I will continue with pregabalin/Lyrica and the duloxetine to try to control that pain. I do not think it is a good idea to stop those medications at this moment since those medications should be stopped slowly. She seems to be just a little bit better. She was able to say her name. She was able to say that she is in pain at the level of the lower extremities but she is not oriented to place. She is not able to say her last name. She is not oriented to time. It is hard to say if she is following commands for me. OBJECTIVE: Vital Signs: Temperature 97.4 degrees, pulse 111, respiratory rate 23, blood pressure 154/93, oxygen saturation 93 on room air. HEENT: Head normocephalic. No trauma. PERRLA. Neck: Supple. No JVD. No masses. Central trachea. Cardiovascular: RRR. Abdomen: Soft, nondistended. Some tenderness, mostly at the level of the lower abdomen but it is diffuse. Extremities: No edema, no clubbing, no cyanosis. Neurological Examination: This patient is basically not responding to most of my questions except her name. I do not think she is following commands today. She moves all 4 extremities. She is complaining of lower extremity discomfort but she is not able to say what kind of discomfort/pain it is. Laboratory: Sodium 139, potassium 3.4, chloride 106, bicarbonate 18, BUN 16, creatinine 0.8, glucose 108, calcium 8.8. AST 16, ALT 8, alkaline phosphatase 98, albumin 3.8. ASSESSMENT AND PLAN: 1. Global encephalopathy, multifactorial. This could be related to an infectious process but also we have a urine toxicology that showed cocaine. On top of that, this patient probably took a bottle of antidepressants that were filled last week but I am not quite sure about this information. No family members at the bedside. We will continue to monitor this patient in the intensive care unit. Since she is awake, I will put her on a diet. I asked yesterday for a CT scan of the abdomen. That showed severe rectal stool impaction and also vascular disease of the abdominal aorta. 2. Abdominal pain. CT scan showed fecal impaction. That has resolved. 3. Hypertension. Continue with as-needed medication. 4. Depression. Aware but no family members at the bedside. She has been on duloxetine, which I will continue. 5. Peripheral neuropathy. Continue with duloxetine and pregabalin. 6. Apparent previous suicide attempt. I am not quite sure about this. She is not answering my questions. 7. Alcohol use disorder and benzodiazepine use disorder. We will monitor this patient closely. I am not quite sure if her global encephalopathy is related to an infectious process or medications, or even a suicide attempt. 8. Urinary tract infection. Continue with Zosyn. Urine culture showed gram-positive cocci. Blood cultures negative so far. 9. Hypokalemia. We will replace the potassium. cc: Bolivar Palacios MD
[2019-08-21] MEDS: CYMBALTA PO SCH (09:28)
[2019-08-21] MEDS: LYRICA PO SCH ×3 (09:29→17:30)
[2019-08-21] MEDS ORDERED: BLISTEX MEDICATED BERRY LIP BALM TOP PRN (10:29)
[2019-08-21] MEDS: VANCOMYCIN 1,350 MG in NS 250 ML IV SCH (10:58)
[2019-08-21] MEDS: NS 1,000 ML IV SCH (17:31)
[2019-08-21] MEDS: NICODERM PATCH TD SCH (19:10)
[2019-08-21] MEDS: DULCOLAX PR SCH (20:58)
[2019-08-22] MEDS: ZOSYN 3.375 GM in NS 50 ML IV SCH ×4 (01:59→22:00)
[2019-08-22] MEDS: VANCOMYCIN 1,350 MG in NS 250 ML IV SCH (03:44)
[2019-08-22 06:35] LABS: CALCIUM 8.6 mg/dL (8.8-10.2); CREATININE 1.5 mg/dL (0.5-0.9); PHOSPHORUS 4.9 mg/dL (2.7-4.5); POTASSIUM 3.5 mmol/L (3.5-5.1)
[2019-08-22] MEDS: ZYVOX 600 MG/D5W 600 MG/300 ML IVPB IV SCH ×2 (07:44→18:48)
[2019-08-22] MEDS: LYRICA PO SCH ×3 (08:02→16:30)
[2019-08-22] MEDS: NS 1,000 ML IV SCH ×4 (08:51→23:52)
--- NOTE | 2019-08-22 09:03 | PROGRESS NOTE ---
DATE: 08/22/2019 SUBJECTIVE: The patient is resting comfortably in bed. She is completely awake, alert. She is oriented x3. She does not remember what happened. As per the patient, she was told that she took some medications. As per the patient, she is not suicidal. She used to be a long time ago but not right now. She does cocaine, and she was found by her roommate who called the ambulance, but again, this patient does not know exactly how that happened. On the other hand, her creatinine increased from 0.8 to 1.5. OBJECTIVE: Vital Signs: Temperature 98.1 degrees, pulse 62, respiratory rate 13, blood pressure 127/68, oxygen saturation 94% on room air. HEENT: Head normocephalic, no trauma, PERRLA. Neck: Supple. No JVD. No masses. Central trachea. Chest: Clear to auscultation. No wheezing, no rales. Abdomen: Soft, nontender, nondistended. No hepatosplenomegaly. Extremities: No edema, no clubbing, no cyanosis. Neurological: The patient is awake, alert. She is oriented x3. I do not see any focal neurological deficits. LABORATORY: Sodium 140, potassium 3.5, chloride 109, bicarbonate 19, BUN 18, creatinine 1.5, glucose 92, calcium 8.6, phosphorus 4.9, magnesium 2. ASSESSMENT AND PLAN: 1. Global encephalopathy, multifactorial, probably related to the infectious process. Urine toxicology also showed cocaine, and probably this patient took a bottle of antidepressants before coming to the hospital. No family members are at the bedside. Apparently, this is not the first time that this happen. Apparently, she had some thoughts of killing herself a long time ago, but not recently as per the patient. 2. Abdominal pain, CT scan showed fecal impaction. She has been having bowel movements. 3. Hypertension. This patient's blood pressure has been stable and sometimes increases to the 160s. I will continue with as needed medication. 4. Depression. She has been on duloxetine, which I will stop for now because I have placed this patient on Zyvox due to methicillin-resistant Staphylococcus aureus urinary tract infection. 5. Peripheral neuropathy. Continue with pregabalin. 6. Apparent previous history of suicide attempt, aware. 7. Urinary tract infection due to methicillin-resistant Staphylococcus aureus. I will put this patient on Zyvox, and I will stop the vancomycin due to acute kidney injury. 8. Hypokalemia, resolved. 9. Acute kidney injury. I will stop the vancomycin, and I will increase the rate of the intravenous fluids. SUMMARY: Overall, this patient seems to be stable. She has an acute kidney injury now, which I believe is probably due to medication, especially vancomycin, which I will stop. She has been getting fluids, but I will increase the rate. I think she can be transferred to the floor, and before sending this patient home, once everything is okay, I will contact [facility] to evaluate this patient and talk to her. cc: Bolivar Palacios MD
[2019-08-22] MEDS: NICODERM PATCH TD SCH (18:48)
[2019-08-22] MEDS: DULCOLAX PR SCH (23:12)
[2019-08-23] MEDS: ZOSYN 3.375 GM in NS 50 ML IV SCH ×2 (03:40→09:04)
[2019-08-23] MEDS: ZYVOX 600 MG/D5W 600 MG/300 ML IVPB IV SCH (06:18)
[2019-08-23 08:11] LABS: HEMATOCRIT 35.9 % (37.0-47.0); HEMOGLOBIN 11.7 g/dL (12.0-16.0); MCH 30.1 PG (27-31); MCHC 32.6 g/dL (33-37); MCV 92.3 FL (81-99); MPV 11.8 FL (7.4-10.4); RBC 3.89 XMIL (4.2-5.4); RDW 14.9 % (11.5-14.5); WBC 8.89 X1000 (4.8-10.8)
[2019-08-23 08:30] LABS: CALCIUM 8.1 mg/dL (8.8-10.2); CREATININE 1.9 mg/dL (0.5-0.9); POTASSIUM 3.4 mmol/L (3.5-5.1)
[2019-08-23] MEDS: NICODERM PATCH TD SCH (09:04)
[2019-08-23] MEDS: LYRICA PO SCH ×3 (09:04→17:36)
[2019-08-23] MEDS: NS 1,000 ML IV SCH ×2 (09:05→17:36)
[2019-08-23] MEDS: CYMBALTA PO SCH (12:50)
[2019-08-23] MEDS: DOXYCYCLINE 100 MG in NS 250 ML IV SCH (12:50)
--- NOTE | 2019-08-23 13:06 | PROGRESS NOTE ---
DATE: 08/23/2019 SUBJECTIVE: The patient is resting comfortably in bed. She still does not remember what happened and what brought her here, she is not suicidal, but at the end of this hospitalization, I will get [facility] to talk to her. I do not think this is the first time that this kind of problem happened. No family members at the bedside. Kidney function is a little bit worse compared with yesterday, but as per the patient she has been having good urine output. I will ask for urine studies and renal ultrasound. On the other hand, I will stop the Zyvox and we will put this patient on doxycycline to cover her MRSA urinary tract infection. OBJECTIVE: Vital Signs: Temperature 98.2 degrees, pulse 62, respiratory rate 16, blood pressure 150/74. Oxygen saturation 98 on room air. HEENT: Head, normocephalic, no trauma. PERRLA. Neck: Supple. No JVD. No masses. Central trachea. Chest: Clear to auscultation. No wheezing. No rales. Abdomen: Soft, nontender, nondistended. No hepatosplenomegaly. Extremities: No clubbing, no cyanosis. Neurological: The patient is awake, alert, she is oriented x3. No focal deficits. She seems to be a little bit anxious but no suicidal ideation. LABORATORY: WBC 8.8, hemoglobin 11.7, hematocrit 35.9, platelets 202,000. Sodium 142, potassium 3.4, chloride 111, bicarbonate 23, BUN 17, creatinine 1.9, glucose 105, calcium 8.1. ASSESSMENT AND PLAN: 1. Global encephalopathy, multifactorial, resolved probably related to the infectious process. Urine toxicology also showed cocaine and probably this patient also took a bottle of antidepressants before coming to the hospital. No family members at the bedside. Apparently, this is not the first time that this kind of problem happened. As per the patient, she had some thoughts about killing herself a long time ago but not recently. 2. Abdominal pain, CT scan showed fecal impaction, which resolved. 3. Hypertension. We will continue with as needed medication. 4. Depression. I have placed this patient back on duloxetine. 5. Peripheral neuropathy. Continue with pregabalin. 6. Apparent history of a suicide attempt, aware. 7. Urinary tract infection due to methicillin-resistant Staphylococcus aureus. I have stopped the Zyvox and put her on doxycycline, which is sensitive. 8. Hypokalemia, will monitor. 9. Acute kidney injury, this is getting better. She received some vancomycin and also she had a CT scan with some contrast to rule out any abdominal problem. Her creatinine went up from 1.5 to 1.9, but the BUN actually is about the same from 18 to 17. The patient seems to be stable but she is having an acute kidney injury. Once this patient's kidney injury is better, I will contact [facility] to talk to the patient to see if this patient is safe to go home or if she needs to be hospitalized. cc: Bolivar Palacios MD
--- NOTE | 2019-08-23 14:26 | Diag Imaging Result Doc PS360 ---
EXAM: US RENAL 2 (RETROPER) COMPLETE HISTORY: brittany/arf TECHNIQUE: Renal ultrasound COMPARISON: None. FINDINGS: The right kidney measures 11.7 x 5.2 x 5.7 cm. The left kidney measures 10.7 x 5.4 x 5.2 cm. No stones or hydronephrosis. No renal masses. Borderline mild increased renal echotexture. Normal cortical thickness. The urinary bladder is distended. IMPRESSION: Borderline mild increased renal echotexture, but otherwise normal exam. Electronically signed by Erick Patiño 08/23/2019 2:24 PM
[2019-08-23 16:53] LABS: URINE SOURCE CLEAN CATCH
[2019-08-23 17:05] LABS: BILIRUBIN URINE NEGATIVE (NEGATIVE); BLOOD URINE NEGATIVE (NEGATIVE); COLOR STRAW; GLUCOSE URINE NEGATIVE (NEGATIVE); KETONE URINE NEGATIVE (NEGATIVE); LEUKOCYTES URINE NEGATIVE (NEGATIVE); NITRITE URINE NEGATIVE (NEGATIVE); PH URINE 6.5; PROTEIN URINE NEGATIVE (NEGATIVE); SP GRAVITY URINE 1.007; TURBIDITY URINE CLEAR (CLEAR); UROBILINOGEN URINE NORMAL (NORMAL)
[2019-08-23 17:06] LABS: UR EPITHELIAL CELLS <10 /HPF (<10); URINE BACTERIA NEGATIVE /HPF; URINE RBC <10 /HPF (<10); URINE WBC <10 /HPF (<10)
[2019-08-23 17:21] LABS: UR CREAT RANDOM 21.7 mg/dL (11-20); UR PROT RANDOM 7.3 mg/dL
[2019-08-23] MEDS ORDERED: PRILOSEC PO ONE (22:10)
[2019-08-23] MEDS ORDERED: TUMS PO ONE (22:12)
[2019-08-23] MEDS: MELATONIN PO PRN (22:29)
[2019-08-23] MEDS: DULCOLAX PR SCH (22:30)
[2019-08-24] MEDS: DOXYCYCLINE 100 MG in NS 250 ML IV SCH ×3 (00:16→22:26)
[2019-08-24] MEDS: NS 1,000 ML IV SCH ×2 (03:47→20:01)
[2019-08-24] MEDS: TYLENOL PO PRN ×2 (04:02→14:39)
[2019-08-24] MEDS: PRILOSEC PO SCH (06:49)
[2019-08-24 08:05] LABS: CALCIUM 8.4 mg/dL (8.8-10.2); CREATININE 1.6 mg/dL (0.5-0.9); MAGNESIUM 1.7 mg/dL (1.5-2.7); PHOSPHORUS 3.7 mg/dL (2.7-4.5); POTASSIUM 3.3 mmol/L (3.5-5.1)
[2019-08-24] MEDS: NICODERM PATCH TD SCH (08:32)
[2019-08-24] MEDS: LYRICA PO SCH ×3 (08:33→17:57)
[2019-08-24] MEDS: CYMBALTA PO SCH (08:33)
[2019-08-24] MEDS ORDERED: KLOR-CON PO ONE (10:04)
[2019-08-24] MEDS: D5 1/2 NS 1,000 ML IV SCH ×2 (14:35→22:29)
--- NOTE | 2019-08-24 16:35 | PROGRESS NOTE ---
DATE: 08/24/2019 SUBJECTIVE: This patient is resting comfortably in bed. She still does not remember what happened before coming to the hospital. She is not suicidal, but I will get [facility] to evaluate this patient on the day of discharge, which I believe is going to be tomorrow. Her kidney function is getting better. Her creatinine decreased from 1.9 to 1.6. Initially, her creatinine was completely normal at 0.7. I do believe this acute kidney injury is due to IV contrast and antibiotics. OBJECTIVE: Vital Signs: Temperature 98 degrees, pulse 55, respiratory rate 17, blood pressure 164/80, oxygen saturation 97% on room air. HEENT: Head normocephalic, no trauma. PERRLA. Neck: Supple. No JVD. No masses. Central trachea. Chest: Clear to auscultation. No wheezing. No rales. Abdomen: Soft, nontender, nondistended. No hepatosplenomegaly. Extremities: No edema, no clubbing, no cyanosis. Neurological: The patient is awake, alert, she is oriented x3. No focal neurological deficit, probably mild anxiety. LABORATORY: Sodium 141, potassium 3.3, chloride 113, bicarbonate 18, BUN 13, creatinine 0.6, glucose 91, calcium 8.4, magnesium 1.7. ASSESSMENT AND PLAN: 1. Global encephalopathy, multifactorial, resolved, likely related to the infectious process, also the urine toxicology showed cocaine and apparently she took a bottle of antidepressants before coming to the hospital but I am not sure about it. No family members at the bedside. 2. Abdominal pain, CT scan showed fecal impaction, which resolved. 3. Hypertension continue with medications as needed. 4. History of depression. Aware. I have placed this patient back on Duloxetine. 5. Acute kidney injury, likely due to medications and/or IV contrast. This is getting better, the urine output is improving. We will monitor. Hopefully tomorrow will be much better. 6. Peripheral neuropathy. Continue with pregabalin. 7. History of suicide attempt before. Aware. 8. Hypokalemia. Will replaced. 9. Urinary tract infection due to Methicillin-resistant Staphylococcus aureus. Continue with doxycycline. cc: Bolivar Palacios MD
[2019-08-24] MEDS: DULCOLAX PR SCH (20:40)
[2019-08-24] MEDS: MELATONIN PO PRN (20:43)
[2019-08-25] MEDS: D5 1/2 NS 1,000 ML IV SCH (05:15)
[2019-08-25] MEDS: PRILOSEC PO SCH (06:15)
[2019-08-25] MEDS: APRESOLINE IV PRN (06:16)
[2019-08-25] MEDS: LYRICA PO SCH (08:57)
[2019-08-25] MEDS: CYMBALTA PO SCH (08:57)
[2019-08-25] MEDS: NICODERM PATCH TD SCH (08:57)
[2019-08-25 09:08] LABS: CALCIUM 8.8 mg/dL (8.8-10.2); CREATININE 1.6 mg/dL (0.5-0.9); POTASSIUM 3.3 mmol/L (3.5-5.1)
[2019-08-25] MEDS ORDERED: NORVASC PO SCH (09:15)
[2019-08-25 11:44] VITALS: BP 157/71
--- NOTE | 2019-08-25 23:13 | DISCHARGE SUMMARY ---
ADMISSION DATE: 08/19/2019 DISCHARGE DATE: 08/25/2019 DISCHARGE DIAGNOSES: 1. Global encephalopathy, resolved. 2. Fecal impaction, resolved. 3. Hypertension. 4. History of depression. 5. Acute kidney injury. 6. Peripheral neuropathy. 7. History of suicide attempt. 8. Urinary tract infection due to methicillin-resistant Staphylococcus aureus (MRSA). 9. Hypokalemia. 10. Possible medication overdose, but not sure. 11. Drug abuse, urine toxicology positive for cocaine. PROCEDURES PERFORMED: 1. Head CT scan dated 08/19/2019. Impression: Chronic microvascular ischemic changes. No evidence of acute intracranial disease. 2. Chest x-ray dated 08/19/2019. Impression: Mild pulmonary edema. 3. Chest x-ray dated 08/28/2019. Impression: Negative exam. 4. Abdomen and pelvis CT scan dated 08/20/2019. Impression: Severe rectal stool impaction, vascular disease of the abdominal aorta. 5. Renal ultrasound dated 08/23/2019. Impression: Borderline mild increased renal echotexture, but otherwise normal exam. CONSULTATIONS: Neurology Department. HOSPITAL COURSE: A 49-year-old female brought in by EMS after apparently her brother found her at home in bed who had been incontinent of her bowel and bladder and was lying in her excrement, moaning and saying I hurt, but would not say any more and would not answer any other questions. She was admitted on 08/19/2019. It was unknown when she was last seen normal. Nursing staff reported that around 21:50 a female called who stated that she was the patient's friend, stating that her had found her earlier and called 911 and that they had found her antidepressant bottle with all the medication gone from it that she had just gotten filled one week before admission. They were not able to identify what kind of medication it was. When the patient first arrived, she was screaming. She received some medication for agitation apparently and CT scan of the head did not show any abnormality. Laboratory showed urinary tract infection and urine toxicology positive for cocaine. X-ray showed mild pulmonary edema. She was able to open her eyes and say her name but she was not following commands or answering any questions. She had both arms up by her head with her fist tightly closed. She was transferred to the ICU. She was placed on IV fluids. The patient was improving on a daily basis, then when she was able to answer most of our questions, she was placed on a diet and the Neurology Department evaluated this patient during the whole process. She was getting better on a daily basis. Her BUN and creatinine started to go up, probably because of vancomycin that she was receiving for a positive urine culture that showed MRSA urinary tract infection and we did a CT scan of the abdomen that was positive for rectal impaction, but they also used contrast. This combination probably caused the acute kidney injury. She was placed on IV fluids. The kidney function was getting better. She has a normal urine output. BUN and creatinine were trending down. We decided to contact [facility] to rule out any acute process that can cause further damage to this patient like a suicide attempt, but it looks like she is not having suicidal ideation at this moment. This patient will be discharged home. We will continue with the home medication. I will add antibiotics, as well as one medication for the blood pressure. DISCHARGE MEDICATIONS: Amlodipine 5 mg p.o. daily, doxycycline 100 mg p.o. q.12 hours, duloxetine 1 tablet p.o. daily 60 mg, melatonin 5 mg p.o. at bedtime, and pregabalin 1 capsule p.o. t.i.d. PHYSICAL EXAMINATION: HEENT: Head normocephalic. No trauma, PERRLA. Neck: Supple. No JVD. No masses. Central trachea. Chest: Clear to auscultation. No wheezing. No rales. Abdomen: Soft, nontender, nondistended. No hepatosplenomegaly. Extremities: No edema. No clubbing. No cyanosis. Neurological: The patient is awake and alert. She is oriented x3. No focal deficits. Vital signs: Temperature 98.5 degrees, pulse 65, respiratory rate 20, blood pressure 157/71. Oxygen saturation 99 on room air. DISPOSITION: The patient will be discharged home to follow up with primary care doctor in one week and also follow up with [facility] psychiatrist. I have discussed with them. cc: Bolivar Palacios MD
== END 2019-08-25 13:50 | disposition home or self-care (01) | DRG 918 ==
LOC: SUPCPDRO → ED 16:51 → INTOOBSV 16:52 → SUATTDRO 16:52 → ICU 16:52 → OBSVTOIN 16:52 → 3N 08-22 12:54
PROVIDERS: ATTEND Internal Medicine